=== PATIENT | female | born 1995 | race Caucasian/White ===

== ENCOUNTER 2018-09-16 18:40 | Emergency (ER) | payer OTHER ==
--- NOTE | 2018-09-16 18:43 | PDOC ---
Rapid Medical Evaluation Time Seen by Provider: 09/16/18 18:42 Medical Evaluation: 09/16/18 18:42 I have performed a brief in-person evaluation of this patient. The patient presents with a chief complaint of:pelvic pain x 1 month Pertinent physical exam findings:NAD I have ordered the following:U preg The patient will proceed to the ED for further evaluation. Discharge Disposition - Diagnosis Pelvic pain - Referrals - Patient Instructions - Post Discharge Activity
[2018-09-16 18:46] VITALS: BP 112/60; PULSE 88; TEMP 98.6; BMI 22.1
[2018-09-16 19:04] LABS: URINE APPEARANCE CLEAR; URINE BILIRUBIN NEGATIVE (<2.0 mg/dL); URINE COLOR YELLOW; URINE GLUCOSE (UA) NEGATIVE (NEGATIVE); URINE KETONE NEGATIVE (NEGATIVE); URINE LEUK ESTERASE NEGATIVE (NEGATIVE); URINE NITRITE NEGATIVE (NEGATIVE); URINE PROTEIN NEGATIVE (NEGATIVE); URINE UROBILINOGEN NEGATIVE mg/dL (0.2-1.0)
[2018-09-16 19:06] LABS: HCG,QUALITATIVE URINE Negative
--- NOTE | 2018-09-16 19:30 | PDOC ---
*Physical Exam - Vital Signs Last Vital Signs Temp Pulse Resp BP Pulse Ox 98.6 F 88 18 112/60 100 09/16/18 18:44 09/16/18 18:44 09/16/18 18:44 09/16/18 18:44 09/16/18 18:44 ED Treatment Course - ADDITIONAL ORDERS Additional order review: Laboratory Results 09/16/18 18:52 Urine Color Yellow Urine Appearance Clear Urine pH 6.0 Ur Specific [place] 1.019 Urine Protein Negative Urine Glucose (UA) Negative Urine Ketones Negative Urine Blood Negative Urine Nitrite Negative Urine Bilirubin Negative Urine Urobilinogen Negative Ur Leukocyte Esterase Negative Urine HCG, Qual Negative Medical Decision Making - Medical Decision Making 09/16/18 19:30 Patient seen by the advanced practice provider under my direct supervision. Ancillary testing reviewed as necessary. I agree with plan as outlined by the advanced practice provider. *DC/Admit/Observation/Transfer Diagnosis at time of Disposition: Pelvic pain - Discharge Dispostion Disposition: HOME - Referrals - Patient Instructions - Post Discharge Activity
--- NOTE | 2018-09-16 20:42 | PDOC ---
History of Present Illness - General Chief Complaint: Pain Stated Complaint: LOWER ABD PAIN Time Seen by Provider: 09/16/18 18:42 History Source: Patient - History of Present Illness Initial Comments: 09/16/18 20:37 23 year old female c/o pelvic pain x 1 month last night with b/l pelvic pain. LMP: january 2018 last depo shot 03/2018. no urinary symptoms , vaginal discharge, no sti exposure. no pmhx Past History - Past Medical History Allergies/Adverse Reactions: Allergies Allergy/AdvReac Type Severity Reaction Status Date / Time No Known Allergies Allergy Verified 09/16/18 18:46 COPD: No - Suicide/Smoking/Psychosocial Hx Smoking History: Never smoked Information on smoking cessation initiated: No Hx Alcohol Use: No Drug/Substance Use Hx: No Review of Systems - Review of Systems Able to Perform ROS?: Yes Is the patient limited Maltese proficient: No Constitutional: No: Symptoms Reported, See HPI, Chills, Diaphoresis, Fever, Loss of Appetite, Malaise, Night Sweats, Weakness, Weight Stable, Unintentional Wgt. Loss, Unexplained wgt Loss, Other : Yes: Other (pelvic pain). No: Symptoms Reported, See HPI, Burning, Dysuria , Discharge, Frequency, Flank Pain, Hematuria, Incontinence, Pain, Urgency, Testicular Mass, Testicular Swelling, Lesions, Testicular Pain *Physical Exam - Vital Signs Last Vital Signs Temp Pulse Resp BP Pulse Ox 98.6 F 88 18 112/60 100 09/16/18 18:44 09/16/18 18:44 09/16/18 18:44 09/16/18 18:44 09/16/18 18:44 - Physical Exam General Appearance: Yes: Appropriately Dressed Respiratory/Chest: positive: Lungs Clear, Normal Breath Sounds Cardiovascular: positive: Regular Rhythm, Regular Rate Female Pelvic Exam: positive: normal external exam, adnexal tenderness (b/l) Gastrointestinal/Abdominal: positive: Normal Bowel Sounds, Soft. negative: Tender Extremity: positive: Normal Capillary Refill, Normal Inspection, Normal Range of Motion Integumentary: positive: Normal Color, Dry, Warm Neurologic: positive: Fully Oriented, Alert, Normal Mood/Affect Moderate Sedation - Procedure Monitoring Vital Signs: Procedure Monitoring Vital Signs Temperature 98.6 F 09/16/18 18:44 Pulse Rate 88 09/16/18 18:44 Respiratory Rate 18 09/16/18 18:44 Blood Pressure 112/60 09/16/18 18:44 O2 Sat by Pulse Oximetry (%) 100 09/16/18 18:44 ED Treatment Course - ADDITIONAL ORDERS Additional order review: Laboratory Results 09/16/18 18:52 Urine Color Yellow Urine Appearance Clear Urine pH 6.0 Ur Specific [place] 1.019 Urine Protein Negative Urine Glucose (UA) Negative Urine Ketones Negative Urine Blood Negative Urine Nitrite Negative Urine Bilirubin Negative Urine Urobilinogen Negative Ur Leukocyte Esterase Negative Urine HCG, Qual Negative *DC/Admit/Observation/Transfer Diagnosis at time of Disposition: Pelvic pain Ovarian cyst Qualifiers: Laterality: bilateral Qualified Code(s): N83.201 - Unspecified ovarian cyst, right side; N83.202 - Unspecified ovarian cyst, left side - Discharge Dispostion Disposition: HOME - Referrals Referrals: Cierra Abraham MD [Staff Physician] - - Patient Instructions Printed Discharge Instructions: Ovarian Cyst Additional Instructions: take ibuprofen every 6 hours NEEDED for pain follow up with a programmer engineering and scientific as soon as possible. Additional Instructions: * Please call your personal physician to report your Emergency Department visit and to report your progress, if any. * If there is no improvement in symptoms in 2 days call your physician. * Return to the Emergency Department for any worsening symptoms. - Post Discharge Activity Forms/Work/School Notes: Back to Work
== END 2018-09-16 22:34 | disposition home or self-care (01) ==
LOC: JER 18:40
DX: R10.2 Pelvic and perineal pain (principal); N83.201 Unspecified ovarian cyst, right side
CPT/HCPCS: 76830-TC; 81003; 84703; 87086; 99281-25

== ENCOUNTER 2019-01-20 12:46 | Emergency (ER) | payer SELFPAY ==
[2019-01-20 13:05] VITALS: BP 117/66; PULSE 79; TEMP 98.4; BMI 21.2
--- NOTE | 2019-01-20 13:47 | PDOC ---
History of Present Illness - General Chief Complaint: Pain, Acute Stated Complaint: ABD PAIN History Source: Patient - History of Present Illness Timing/Duration: reports: other Abdominal Pain Onset Location: reports: suprapubic Past History - Past Medical History Allergies/Adverse Reactions: Allergies Allergy/AdvReac Type Severity Reaction Status Date / Time No Known Allergies Allergy Verified 09/16/18 18:46 COPD: No - Immunization History Immunization Up to Date: No - Suicide/Smoking/Psychosocial Hx Smoking History: Never smoked Have you smoked in the past 12 months: No Information on smoking cessation initiated: No Hx Alcohol Use: No Drug/Substance Use Hx: No Review of Systems - Review of Systems Constitutional: No: Chills, Fever ABD/GI: Yes: Abdominal cramping. No: Blood Streaked Bowels, Constipated, Diarrhea, Nausea, Rectal Bleeding, Vomiting : No: Burning, Dysuria, Flank Pain, Hematuria *Physical Exam - Vital Signs Last Vital Signs Temp Pulse Resp BP Pulse Ox 98.4 F 79 18 117/66 99 01/20/19 13:03 01/20/19 13:03 01/20/19 13:03 01/20/19 13:03 01/20/19 13:03 - Physical Exam General Appearance: Yes: Appropriately Dressed. No: Apparent Distress HEENT: positive: Normal Voice Neck: positive: Supple Respiratory/Chest: negative: Respiratory Distress Female Pelvic Exam: positive: cervical os closed, normal adnexa. negative: CMT , discharge, adnexal tenderness, vaginal bleeding Gastrointestinal/Abdominal: positive: Normal Bowel Sounds, Tender (to suprapubic diffusely, no sig ttp to RLQ), Soft. negative: Distended, Guarding, Rebound Musculoskeletal: negative: CVA Tenderness Integumentary: positive: Dry, Warm Neurologic: positive: Fully Oriented, Alert, Normal Mood/Affect ED Treatment Course - LABORATORY CBC & Chemistry Diagram: 01/20/19 14:00 01/20/19 15:18 Medical Decision Making - Medical Decision Making 01/20/19 13:42 24 yo F, no sig hx, p/w lower abd pain x 2-3 days, sharp, worse at nights, prevents her from sleeping. No dysuria, hematuria, vaginal discharge, f/c or change in BM. No menses since came off depo 03/21 and only "spots" on and off. No new sexual partners. No h/o STDs See exam Pelvic pain R/o preg vs torsion vs appy, less likely uti/pyelo, unlikely PID as pelvic exam wnl -pain control -labs -US -?CT 01/20/19 17:35 Labs/US w/ no findings to explain pain. States pain since improved with meds. I explained to patient that based on the workup, that we do not know the source of her pain, but that we can do a CAT scan today to evaluate her appendix. Patient states she is feeling better and declines CT at this time, states she would rather go home and come back if her pain returns. Given no sig ttp to RLQ on exam and normal labs, shared decision making was made for pt to return to ED as needed *DC/Admit/Observation/Transfer Diagnosis at time of Disposition: Pelvic pain - Discharge Dispostion Disposition: HOME Condition at time of disposition: Improved - Referrals - Patient Instructions Printed Discharge Instructions: DI for Pelvic Pain Additional Instructions: The source of your pain is unclear at this time as your labs, urine and ultrasound were all normal. If your pain returns and is especially localized to your right lower abdomen, please return to ER for a CAT scan to evaluate for possible appendicitis - Post Discharge Activity
[2019-01-20] MEDS ORDERED: IBUPROFEN 400 MG TABLET (FP) PO ONE ×2 (14:03→15:13)
[2019-01-20 14:32] LABS: PH,URINE 6.5 (5.0-8.0); URINE APPEARANCE CLEAR; URINE BILIRUBIN NEGATIVE (NEGATIVE); URINE COLOR YELLOW; URINE GLUCOSE (UA) NEGATIVE (NEGATIVE); URINE KETONE NEGATIVE (NEGATIVE); URINE LEUK ESTERASE NEGATIVE (NEGATIVE); URINE NITRITE NEGATIVE (NEGATIVE); URINE PROTEIN NEGATIVE (NEGATIVE); URINE UROBILINOGEN 0.2 mg/dL (0.2-1.0)
[2019-01-20 14:36] LABS: BASO % 0.6 % (0-2.0); EOS % 3.8 % (0-4.5); HEMOGLOBIN 12.7 GM/dL (10.7-15.3); LYMPH % 20.6 % (8-40); MCH 31.9 pg (25.7-33.7); MCHC 33.4 g/dl (32.0-36.0); MEAN CELL VOLUME 95.6 fl (80-96); MEAN PLT VOLUME 10.4 fl (7.5-11.1); MONO % 6.9 % (3.8-10.2); NEUT % 68.1 % (42.8-82.8); PLATELET COUNT 256 K/MM3 (134-434); RBC 3.98 M/mm3 (3.60-5.2); RDW 12.6 % (11.6-15.6); WHITE BLOOD COUNT 10.9 K/mm3 (4.0-10.0)
[2019-01-20 15:01] LABS: HCG,QUALITATIVE URINE Negative
[2019-01-20] MEDS ORDERED: IBUPROFEN 600 MG TABLET (FP) PO ONE (15:12)
[2019-01-20 15:36] LABS: PLATELET ESTIMATE NORMAL
[2019-01-20 16:20] LABS: ALBUMIN 4.3 g/dl (3.4-5.0); BILIRUBIN,TOTAL 0.4 mg/dL (0.2-1); CALCIUM 9.2 mg/dL (8.5-10.1); CREATININE 0.6 mg/dL (0.55-1.3); POTASSIUM 3.9 mmol/L (3.5-5.1); TOT PROT 7.5 g/dl (6.4-8.2)
== END 2019-01-20 17:50 | disposition home or self-care (01) ==
LOC: JER 12:46
DX: R10.2 Pelvic and perineal pain (principal)
CPT/HCPCS: 36415; 76830-TC; 76856-TC; 80053; 81003; 84703; 85025; 87491; 87591; 99282-25

== ENCOUNTER 2019-02-14 17:50 | Emergency (ER) | payer OTHER ==
[2019-02-14 18:03] VITALS: BP 119/67; PULSE 93; TEMP 98.7; BMI 20.8
--- NOTE | 2019-02-14 18:50 | PDOC ---
History of Present Illness - General Chief Complaint: Pain Stated Complaint: PELVIC PAIN Time Seen by Provider: 02/14/19 18:24 History Source: Patient Exam Limitations: No Limitations - History of Present Illness Initial Comments: 02/14/19 18:45 Patient is a 24 year old female with no pmhx c/o pelvic pain x 3 days. Paitent states the pain is 8/10, pressure, assoc/w nausea, vomiting intermittently with no aggravating or alleviating factors. States she had been drinking water for her symptoms but has not taken any meds. Denies dysuria, or hematuria. No h/o STD. States prior episode of this pain 4 months ago and was diagnoses with cyst. Review of the record shows patient was her for these symtpoms 3 months ago work up neg. lmp 01/24/19. RISK MANAGER: Dr. Ibanez PMHX: as above PSOCHX: neg etoh, cig, drug GENERAL/CONSTITUTIONAL: No fever or chills. No weakness. No weight change. HEAD, EYES, EARS, NOSE AND THROAT: No change in vision. No ear pain or discharge. No sore throat. CARDIOVASCULAR: No chest pain or shortness of breath. RESPIRATORY: No cough, wheezing, or hemoptysis. GASTROINTESTINAL: No nausea, vomiting, diarrhea or constipation. No rectal bleeding. GENITOURINARY: No dysuria, frequency, or change in urination. MUSCULOSKELETAL: No joint or muscle swelling or pain. No neck or back pain. SKIN AND BREASTS: No rash or easy bruising. NEUROLOGIC: No headache, vertigo, loss of consciousness, or loss of sensation. PSYCHIATRIC: No depression or anxiety. ENDOCRINE: No increased thirst. No abnormal weight change. HEMATOLOGIC/LYMPHATIC: No anemia, easy bleeding, or history of blood clots. ALLERGIC/IMMUNOLOGIC: No hives or skin allergy. No latex allergy. GENERAL: The patient is awake, alert, and fully oriented, in no acute distress. HEAD: Normal with no signs of trauma. EYES: Pupils equal, round and reactive to light, extraocular movements intact, sclera anicteric, conjunctiva clear. ENT: Ears normal, nares patent, oropharynx clear without exudates. Moist mucous membranes. NECK: Normal range of motion, supple without lymphadenopathy, JVD, or masses. LUNGS: Breath sounds equal, clear to auscultation bilaterally. No wheezes, and no crackles. HEART: Regular rate and rhythm, normal S1 and S2 without murmur, rub. ABDOMEN: Soft, nontender, normoactive bowel sounds. No guarding, no rebound. No masses. PELVIC: not done patient walked out EXTREMITIES: Normal range of motion, no edema. No clubbing or cyanosis. No cords, erythema, or tenderness. NEUROLOGICAL: Cranial nerves II through XII grossly intact. Normal speech, normal gait. PSYCH: Normal mood, normal affect. Past History - Past Medical History Allergies/Adverse Reactions: Allergies Allergy/AdvReac Type Severity Reaction Status Date / Time No Known Allergies Allergy Verified 02/14/19 18:03 COPD: No - Immunization History Immunization Up to Date: No - Suicide/Smoking/Psychosocial Hx Smoking History: Never smoked Have you smoked in the past 12 months: No Hx Alcohol Use: No Drug/Substance Use Hx: No *Physical Exam - Vital Signs Last Vital Signs Temp Pulse Resp BP Pulse Ox 98.7 F 93 H 18 119/67 99 02/14/19 18:01 02/14/19 18:01 02/14/19 18:01 02/14/19 18:01 02/14/19 18:01 Medical Decision Making - Medical Decision Making 02/14/19 18:45 Patient is a 24 year old female with no pmhx c/o pelvic pain x 3 days. Paitent states the pain is 8/10, pressure, assoc/w nausea, vomiting intermittently with no aggravating or alleviating factors. States she had been drinking water for her symptoms but has not taken any meds. Denies dysuria, or hematuria. No h/o STD. States prior episode of this pain 4 months ago and was diagnoses with cyst. Review of the record shows patient was her for these symtpoms 3 months ago work up neg. lmp 01/24/19. UA/cult/preg reassess 02/14/19 21:27 Urine test negative. Look for patient in the vertical area to do pelvic exam and disposition, assumed to have eloped *DC/Admit/Observation/Transfer Diagnosis at time of Disposition: Pelvic pain - Discharge Dispostion Disposition: ELOPED Condition at time of disposition: Stable - Referrals - Patient Instructions - Post Discharge Activity
[2019-02-14 19:17] LABS: HCG,QUALITATIVE URINE Negative
[2019-02-14 19:35] LABS: PH,URINE >= 9.0 (5.0-8.0); URINE APPEARANCE CLEAR; URINE BILIRUBIN NEGATIVE (NEGATIVE); URINE COLOR YELLOW; URINE GLUCOSE (UA) NEGATIVE (NEGATIVE); URINE KETONE NEGATIVE (NEGATIVE); URINE LEUK ESTERASE NEGATIVE (NEGATIVE); URINE NITRITE NEGATIVE (NEGATIVE); URINE PROTEIN NEGATIVE (NEGATIVE)
== END 2019-02-14 20:45 | disposition left against medical advice (07) ==
LOC: JER 17:50
DX: R10.2 Pelvic and perineal pain (principal)
CPT/HCPCS: 81003; 84703; 87086; 99282-25

== ENCOUNTER 2019-04-08 21:35 | Emergency (ER) | payer SELFPAY ==
--- NOTE | 2019-04-08 21:37 | PDOC ---
Rapid Medical Evaluation Time Seen by Provider: 04/08/19 21:36 Medical Evaluation: Allergies Allergy/AdvReac Type Severity Reaction Status Date / Time No Known Allergies Allergy Verified 02/14/19 18:03 04/08/19 21:36 I have performed a brief in-person evaluation of this patient. The patient presents with a chief complaint of: lower abdominal pain LMP ? 03/03 Pertinent physical exam findings: deferred I have ordered the following: PVB w/u The patient will proceed to the ED for further evaluation. Discharge Disposition - Diagnosis Pelvic pain - Referrals - Patient Instructions - Post Discharge Activity
[2019-04-08 21:41] VITALS: BP 112/73; PULSE 91; TEMP 97.7; BMI 22.6
[2019-04-08 22:13] LABS: URINE APPEARANCE CLEAR; URINE BILIRUBIN NEGATIVE (NEGATIVE); URINE COLOR YELLOW; URINE GLUCOSE (UA) NEGATIVE (NEGATIVE); URINE KETONE NEGATIVE (NEGATIVE); URINE LEUK ESTERASE NEGATIVE (NEGATIVE); URINE NITRITE NEGATIVE (NEGATIVE); URINE PROTEIN NEGATIVE (NEGATIVE); URINE UROBILINOGEN 0.2 mg/dL (0.2-1.0)
[2019-04-08 22:15] LABS: BASO % 0.4 % (0-2.0); EOS % 3.3 % (0-4.5); HEMATOCRIT 36.8 % (32.4-45.2); HEMOGLOBIN 11.9 GM/dL (10.7-15.3); LYMPH % 24.1 % (8-40); MCH 31.4 pg (25.7-33.7); MCHC 32.3 g/dl (32.0-36.0); MEAN CELL VOLUME 97.1 fl (80-96); MEAN PLT VOLUME 10.2 fl (7.5-11.1); MONO % 7.1 % (3.8-10.2); NEUT % 65.1 % (42.8-82.8); PLATELET COUNT 265 K/MM3 (134-434); RBC 3.79 M/mm3 (3.60-5.2); RDW 12.5 % (11.6-15.6); WHITE BLOOD COUNT 12.6 K/mm3 (4.0-10.0)
[2019-04-08 22:42] LABS: BLOOD UREA NITROGEN 13.9 mg/dL (7-18); CALCIUM 9.1 mg/dL (8.5-10.1); CREATININE 0.6 mg/dL (0.55-1.3); POTASSIUM 3.6 mmol/L (3.5-5.1)
--- NOTE | 2019-04-08 23:25 | PDOC ---
History of Present Illness - General Chief Complaint: Pain Stated Complaint: ABD PAIN/6WKS PREG Time Seen by Provider: 04/08/19 21:36 - History of Present Illness Initial Comments: Magdiel Nice is an otherwise healthy 24yo woman, currently 5wks by LMP (03/03) who presents with suprapubic abdominal pain since yesterday. She reports that the pain is intermittent and sharp. She has not noticed any association with position, movement, eating, or bowel movements. She denies any vaginal bleeding, abnormal vaginal discharge, or dysuria. She denies fevers, chills, nausea, vomiting, or any other medical problems. She went to see Dr Abraham after her positive home test last week and was told that everything was fine. She was scheduled for an US in 2 weeks and has been taking prescribed vitamins at home. She presented to the ED because she was concerned that there was something wrong with her . Past History - Past Medical History Allergies/Adverse Reactions: Allergies Allergy/AdvReac Type Severity Reaction Status Date / Time No Known Allergies Allergy Verified 04/08/19 21:36 COPD: No - Immunization History Immunization Up to Date: No - Suicide/Smoking/Psychosocial Hx Smoking History: Never smoked Have you smoked in the past 12 months: No Hx Alcohol Use: No Drug/Substance Use Hx: No Review of Systems - Review of Systems Comments:: General: No fevers, no chills, no weight or appetite change, no malaise HEENT: No changes in vision, no changes in hearing, no congestion, no sore throat CV: No chest pain, no palpitations, no LE edema Pulm: No SOB, no cough, no wheezing GI: No nausea or vomiting, no change in bowel habits, no melena : No frequency, no urgency, no dysuria Musc: No back pain, no joint swelling, no recent injury Skin: No rash, no lesions, no erythema Endo: No excessive thirst, no heat/cold intolerance Heme: No unusual bruising or bleeding, no swollen glands Neuro: No syncope, no numbness/tingling, no focal weakness Vasc: No claudication Psych: No recent change in mood, no SI or HI *Physical Exam - Vital Signs Last Vital Signs Temp Pulse Resp BP Pulse Ox 97.7 F 91 H 18 112/73 100 04/08/19 21:37 04/08/19 21:37 04/08/19 21:37 04/08/19 21:37 04/08/19 21:37 - Physical Exam Comments: General: Comfortable, no acute distress HEENT: PERRL, EOMI, MMM, voice normal, normal neck ROM, no LAD Cards: RRR, no murmur appreciated Pulm: Comfortable on room air, clear to auscultation bilaterally Abd: Soft, nontender, nondistended : Normal external genitalia, 2x small pimple-like lesions on right labia. Thin white discharge in vault, no bleeding or lesions appreciated. Os closed. Discomfort with exam but no CMT or adnexal TTP. Ext: Atraumatic. No LE edema. ROM intact. WWP Skin: Normal color, no rashes or lesions Neuro: A&Ox3, CN grossly intact, normal speech, motor/sensory grossly intact and symmetric Psych: Mood appropriate to situation ED Treatment Course - LABORATORY CBC & Chemistry Diagram: 04/08/19 21:54 04/08/19 21:54 - ADDITIONAL ORDERS Additional order review: Laboratory Results 04/08/19 04/08/19 21:54 21:54 Sodium 139 Potassium 3.6 Chloride 106 Carbon Dioxide 27 Anion Gap 6 L BUN 13.9 Creatinine 0.6 Est GFR (CKD-EPI)AfAm 147.86 Est GFR (CKD-EPI)NonAf 127.58 Random Glucose 87 Calcium 9.1 Beta HCG, Quant 387.3 Urine Color Yellow Urine Appearance Clear Urine pH 6.0 D Ur Specific [place] 1.017 Urine Protein Negative Urine Glucose (UA) Negative Urine Ketones Negative Urine Blood Negative Urine Nitrite Negative Urine Bilirubin Negative Urine Urobilinogen 0.2 Ur Leukocyte Esterase Negative 04/08/19 21:54 RBC 3.79 MCV 97.1 H MCHC 32.3 RDW 12.5 MPV 10.2 Neutrophils % 65.1 Lymphocytes % 24.1 Monocytes % 7.1 Eosinophils % 3.3 Basophils % 0.4 Medical Decision Making - Medical Decision Making 04/08/19 22:59 Magdiel Nice is an otherwise healthy 24yo woman, currently 5wks by LMP (03/03) who presents with suprapubic abdominal pain since yesterday. She denies any vaginal bleeding or discharge. - Most likely normal , possible ectopic or early miscarriage - CBC, BMP, T&S, bHCG, UA sent from [facility] - Labs pending - Benign abdominal exam, no vaginal bleeding - TVUS to be completed 04/08/19 23:45 - Labs completed. Notable for bHCG 387, could be very early vs failed . - UA negative - Pt at US - Will likely need repeat bHCG in 2 days 04/09/19 00:15 - US reviewed in ED. Shows thickened endometrium but no gestational sac or pole - Will most likely d/c home with return for repeat HCG in 2 days pending formal US read 04/09/19 01:04 - Official US read agrees with ED read - Pt advised to return to the ED or her blood tester in 48 hours for repeat bHCG - Has care established with Dr Abraham, advised to call tomorrow for follow up - Discussion regarding home care and return precautions. Pt understands and agrees. Discussed with Dr Adilson Soto PGY2 *DC/Admit/Observation/Transfer Diagnosis at time of Disposition: Pelvic pain, Early stage of - Discharge Dispostion Disposition: HOME Condition at time of disposition: Stable Decision to Admit order: No - Referrals Referrals: Cierra Abraham MD [Staff Physician] - - Patient Instructions Printed Discharge Instructions: DI for Abdominal Pain -- Early , DI for -- Discomforts and Remedies Additional Instructions: Discharge Instructions: You were seen in the emergency department for abdominal pain in early . Your hormone was 387, which is consistent with a of about 2-3 weeks. You will need to return to the emergency department or your blood tester in 48 hours to recheck your hormone to make sure it is increasing appropriately. You may take acetaminophen (Tylenol) 650-1000mg every 6-8 hours as needed for pain or discomfort. Call Dr Abraham tomorrow to set up follow up. Seek immediate medical care if you have worsening symptoms, severe abdominal pain, vaginal bleeding, you become lightheaded, or you have any other medical emergency. - Post Discharge Activity
--- NOTE | 2019-04-08 23:26 | PDOC ---
Documentation entered by Isidoro Louie SCRIBE, acting as scribe for Yolette De Anda DO. Yolette De Anda DO: This documentation has been prepared by the Jacy garcia Xhesika, SCRIBE, under my direction and personally reviewed by me in its entirety. I confirm that the documentation accurately reflects all work, treatment, procedures, and medical decision making performed by me. Attending Attestation - Resident Resident Name: CharlesKendal - ED Attending Attestation I have performed the following: I have examined & evaluated the patient, The case was reviewed & discussed with the resident, I agree w/resident's findings & plan, Exceptions are as noted - HPI HPI: 04/08/19 23:32 The patient is a 24 year old female, , currently 6 weeks , with no significant PMH of who presents to the emergency department for abdominal cramping. Patient states she took 5 tests last Friday that were all positive. Patient denies any bleeding or vaginal discharge. Patient states her LMP was end of February. The patient denies chest pain, shortness of breath, headache and dizziness. Denies fever, chills, cough, nausea, vomiting, diarrhea and constipation. Denies dysuria, frequency, urgency and hematuria. Allergies: NKDA - Physicial Exam PE: 04/08/19 23:25 Gen: aaox3, nad heart: +s1s2 reg lungs: cta b/l abd: soft, nt/nd +bs ext: no c/c/e - Medical Decision Making 04/08/19 23:23 I, Dr. Yolette De Anda DO, attest that this document has been prepared under my direction and personally reviewed by me in its entirety. I further attest, that it accurately reflects all work, treatment, procedures and medical decision -making performed by me. 04/08/19 23:23 a/p: 24yo with + preg test last friday -last menstrual cycle was in february - however took preg test last week at work -cramping in abd -no bleeding, no vaginal discharge, no dysuria -pt denies nausea, no vomiting -labs sent were reviewed -beta 300 -pending tvus - concern for cramping for threatened ab vs early preg -no matter tvus results, pt will need repeat beta in 2 days 04/09/19 01:02 pt is O+ 04/09/19 01:05 thickened endometrial lining on ultrasound pt will need repeat beta hcg in 2 days stable for dc to home
== END 2019-04-09 01:10 | disposition home or self-care (01) ==
LOC: JER 21:35
DX: O26.891 Other specified pregnancy related conditions, first trimester (principal); Z3A.01 Less than 8 weeks gestation of pregnancy; R10.2 Pelvic and perineal pain
CPT/HCPCS: 36415; 76817-TC; 80048; 81003; 84702; 85025; 86850; 86900; 86901; 87086; 99281-25

== ENCOUNTER 2019-04-10 12:02 | Emergency (ER) | payer OTHER ==
[2019-04-10 12:05] VITALS: BP 105/69; PULSE 97; TEMP 98.4; BMI 22.6
--- NOTE | 2019-04-10 12:30 | PDOC ---
History of Present Illness - General Chief Complaint: Revisit, Lab Variance Stated Complaint: FOLLOW UP Time Seen by Provider: 04/10/19 12:07 History Source: Patient Exam Limitations: No Limitations Past History - Past Medical History Allergies/Adverse Reactions: Allergies Allergy/AdvReac Type Severity Reaction Status Date / Time No Known Allergies Allergy Verified 04/10/19 12:05 COPD: No - Immunization History Immunization Up to Date: No - Suicide/Smoking/Psychosocial Hx Smoking History: Never smoked Have you smoked in the past 12 months: No Hx Alcohol Use: No Drug/Substance Use Hx: No *Physical Exam - Vital Signs Last Vital Signs Temp Pulse Resp BP Pulse Ox 98.4 F 97 H 18 105/69 99 04/10/19 12:03 04/10/19 12:03 04/10/19 12:03 04/10/19 12:03 04/10/19 12:03 - Physical Exam General Appearance: No: Apparent Distress Respiratory/Chest: positive: Lungs Clear, Normal Breath Sounds. negative: Respiratory Distress Cardiovascular: positive: Regular Rhythm, Regular Rate, S1, S2. negative: Murmur Gastrointestinal/Abdominal: positive: Normal Bowel Sounds, Soft. negative: Tender, Distended, Guarding, Rebound Neurologic: positive: Alert Medical Decision Making - Medical Decision Making 24 y/o F , LNMP 02/26, currently 6 weeks , presents for repeat Bhcg. Patient was seen 2 days ago for mild lower abdominal pain, had Bhcg of 387, with no definite evidence of IUP noted on US. Patient mentions having 04/10/19 12:28 Laboratory Results - last 24 hr 04/10/19 12:00 Beta HCG, Quant 847.9 Beta hcg has increased appropriately Repeat US shows possible early intrauterine gestational sac; no evidence of ectopic Likely early Patient had to leave prior to getting results of US (she had a house closing to do) Patient was called back and informed of results Patient is getting repeat US in 2 days and is seeing her NUT CRACKER the next day Advised to return if having severe abdominal pain or vaginal bleeding 04/10/19 14:06 *DC/Admit/Observation/Transfer Diagnosis at time of Disposition: Early stage of - Discharge Dispostion Disposition: HOME Condition at time of disposition: Stable Decision to Admit order: No - Referrals - Patient Instructions - Post Discharge Activity
== END 2019-04-10 14:17 | disposition home or self-care (01) ==
LOC: JERFT 12:02
DX: O26.891 Other specified pregnancy related conditions, first trimester (principal); Z3A.01 Less than 8 weeks gestation of pregnancy
CPT/HCPCS: 36415; 76817-TC; 84702; 99281-25